=== PATIENT | male | born 1990 | race Caucasian/White ===

== ENCOUNTER 2019-07-18 20:04 | Emergency (ER) | payer SELFPAY ==
[~2019-07-18] VITALS: Ht 167.6 cm; Wt 80.0 kg
[~2019-07-18 20:04] MED LIST: ACET500C5 PO; BEN50 PO; CLOT30CR24 TOP; FLUC150T PO; IBUP-1542 PO; PRED50TA PO
[2019-07-18] MEDS ORDERED: SOD CHLORIDE 0.9% 1,000 ML IV STA (20:08)
[2019-07-18 20:09] VITALS: Ht 167.6 cm; Wt 80.0 kg
[2019-07-18 21:57] VITALS: BP 130/81; PULSE 79; RESP 19
[2019-07-19] MEDS ORDERED: IOHEXOL 350MG/ML 50 ML BTL ONE (02:23)
[2019-07-19] MEDS ORDERED: IOHEXOL 100 ML ONE (02:23)
[2019-07-19] MEDS ORDERED: SOD CHLORIDE 0.9% 100 ML ONE (02:23)
== END 2019-07-18 21:59 | disposition home or self-care (01) ==
LOC: E/R 20:04
DX: S09.90XA Unspecified injury of head, initial encounter (principal); F19.10 Other psychoactive substance abuse, uncomplicated; J45.909 Unspecified asthma, uncomplicated; E11.9 Type 2 diabetes mellitus without complications; R51 Headache; W01.0XXA Fall on same level from slipping, tripping and stumbling without subsequent striking against object, initial encounter; Y92.410 Unspecified street and highway as the place of occurrence of the external cause; Z59.0 Homelessness; Z87.891 Personal history of nicotine dependence
CPT/HCPCS: 36415; 70450; 80053; 80307; 81003; 82962; 85025; 96360; 99285; J7030; Q9967

== ENCOUNTER 2019-07-19 00:45 | Emergency (ER) | payer MEDICAID ==
[~2019-07-19] VITALS: Ht 182.9 cm; Wt 80.0 kg
[2019-07-19 00:50] VITALS: Ht 182.9 cm; Wt 80.0 kg
[2019-07-19] MEDS ORDERED: ONDANSETRON 4 MG INJ IV PRN ×2 (04:30→05:00)
[2019-07-19] MEDS ORDERED: LORAZEPAM 2 MG INJ IV ONE (04:30)
[2019-07-19] MEDS ORDERED: ACETAMINOPHEN 325 MG TAB PO PRN ×2 (04:30→05:00)
[2019-07-19] MEDS ORDERED: LORAZEPAM 2 MG INJ IV PRN ×2 (05:00→06:00)
[2019-07-19] MEDS ORDERED: NACL 0.9% 3 ML SYG IV SCH (05:00)
[2019-07-19] MEDS ORDERED: BISACODYL (EC) 5 MG TAB PO PRN (05:00)
[2019-07-19] MEDS ORDERED: DOCUSATE SODIUM 100 MG CAP PO PRN (05:00)
[2019-07-19] MEDS ORDERED: SOD CHLORIDE 0.9% 1,000 ML IV ONE (06:00)
[2019-07-19] MEDS ORDERED: GLUCAGON 1 MG INJ IM PRN (07:00)
[2019-07-19] MEDS ORDERED: GLUCOSE GEL 15 GRAM TUBE BUCCAL PRN (07:00)
[2019-07-19] MEDS ORDERED: DEXTROSE 50% 50 ML SYRINGE IV PRN ×2 (07:00)
[2019-07-19] MEDS ORDERED: GLUCOSE GEL 15 GRAM TUBE PO PRN ×2 (07:00)
[2019-07-19] MEDS ORDERED: INSULIN ASPART [NOVOLOG] 3 ML PEN SC SCH (08:00)
[2019-07-19] MEDS ORDERED: INSULIN LISPRO 100 UNIT/ML VIAL SC ONE (08:30)
[2019-07-19] MEDS ORDERED: ACCU-CHEK XX ONE (08:30)
[2019-07-19] MEDS ORDERED: ASPIRIN 300 MG SUPP PR ONE (11:30)
[2019-07-19 14:03] VITALS: BP 109/70; PULSE 74; RESP 18
[2019-07-20] MEDS ORDERED: ACCU-CHEK XX SCH (02:00)
== END 2019-07-19 14:25 | disposition short-term general hospital (02) ==
LOC: E/R 00:45 → CANRESERV 07:00 → CANBEDREQ 07:54 → E/R 14:25
DX: R53.1 Weakness (principal); J45.909 Unspecified asthma, uncomplicated; E11.9 Type 2 diabetes mellitus without complications; F17.210 Nicotine dependence, cigarettes, uncomplicated; R41.82 Altered mental status, unspecified
CPT/HCPCS: 36415; 70450; 70496; 70498; 70553; 71045; 80048; 80061; 80307; 81003; 82962; 83036; 84484; 85025; 85610; 85730; 87086; 93005; 96372; 96374; J2060; J7030; Z7502; Z7610; J1815